=== PATIENT | female | born 1990 | race African-American/Black ===

== ENCOUNTER 2016-11-19 12:03 | Emergency (ER) | payer SELFPAY ==
[~2016-11-19] VITALS: Ht 162.6 cm; Wt 45.4 kg
[~2016-11-19 12:03] MED LIST: MEDR400V IM
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
[2016-11-19] MEDS ORDERED: ACETAMINOPHEN ES 500 MG TABLET ONE (12:20)
[2016-11-19] MEDS ORDERED: ACETAMINOPHEN ES 500 MG TABLET PO ONE (12:30)
--- NOTE | 2016-11-19 13:00 | NUR ---
AMBULATORY; STEADY GAIT NOTED
--- NOTE | 2016-11-19 13:09 | NUR ---
Patient discharged to home in stable condition. Written and verbal after care instructions given. Patient verbalizes understanding of instruction.
[2016-11-19 13:10] VITALS: BP 128/82
== END 2016-11-19 13:11 | disposition home or self-care (01) ==
LOC: ER 12:05
DX: S29.012A Strain of muscle and tendon of back wall of thorax, initial encounter (principal); S00.212A Abrasion of left eyelid and periocular area, initial encounter; F17.200 Nicotine dependence, unspecified, uncomplicated; V49.59XA Passenger injured in collision with other motor vehicles in traffic accident, initial encounter; Y93.89 Activity, other specified; Y92.89 Other specified places as the place of occurrence of the external cause; Y99.9 Unspecified external cause status
CPT/HCPCS: A4606; Z7610